=== PATIENT | female | born 1980 | race Caucasian/White ===

== ENCOUNTER → 2018-06-13 | Outpatient (CLI) | payer OTHER ==
--- NOTE | 2018-06-13 10:09 | KCIC ---
Bilateral diagnostic digital mammograms: Reason for examination: Lump in the upper outer quadrant of the left breast felt by the nurse practitioner. Baseline exam. Interpretation was made with the benefit of CAD. The skin and nipples show no abnormalities. No abnormal axillary lymph nodes are seen. The breast parenchyma is heterogeneously dense. (Breast density: Category C.) There circumscribed nodules in the upper outer quadrant of the left breast posteriorly with no associated calcifications. There is also a nodular density at approximately the 10:00 B position of the right breast. No other nodules are suspicious calcifications are seen. Impression: Circumscribed nodules in the upper outer quadrant of the left breast posteriorly. Nodular density at the 10:00 B position of the right breast. Ultrasound to follow. Your patient's mammogram demonstrates that she has dense breast tissue (breast density category C or D), which could hide abnormalities, and if she has other risk factors for breast cancer that have been identified, she might benefit from supplemental screening tests that may be suggested by you as her ordering physician. Dense breast tissue, in and of itself, is a relatively common condition. Therefore, this information is not provided to cause undue concern, but rather to raise your awareness and to promote discussion with your patient regarding the presence of other risk factors, in addition to dense breast tissue. Your patient's mammography results will be sent to her. BI-RAD Category 0: Incomplete. Needs additional imaging evaluation. Bilateral breast ultrasound: Ultrasound examination was performed in the areas of mammographic concern and the axilla bilaterally. In the right breast at the 10:00 position 4.5 cm from the nipple, there is a hypoechoic nodule measuring 1.2 x 1 cm in greatest dimension. This appears solid and the margins are not well-defined on all borders. Further evaluation with ultrasound biopsy is recommended. No other focal nodules are seen. No abnormal appearing lymph nodes are seen in the right axilla. In the left breast, there are hyperechoic circumscribed lesions present in the upper outer at the 2:00 position 9 cm from the nipple and at the 2:00 position 8 cm from the nipple. These have the appearance of simple and complicated cysts. No suspicious-appearing lesions are seen. No abnormal appearing lymph nodes are seen in the axilla. IMPRESSION: Solid-appearing nodule in the right breast at the 10:00 position 4.5 cm from the nipple. Recommend ultrasound-guided biopsy. Hypoechoic circumscribed lesions consistent with simple and complicated cysts at the 2:00 position of the left breast. Recommend 6 month follow-up with ultrasound. BI-RADS Category 4: Suspicious. These findings have been discussed with the patient and the patient's nurse practitioner, Deepti Lombardo was notified about these findings at 9:55 AM on 06/13/2018. "Our facility is accredited by the [employer] Mammography Program." This patient's information has been entered into a reminder system for the patient to be notified with the results of her examination and a target date for the next mammogram. Electronically signed by: Bonny Lutz MD (06/13/2018 10:06 AM) [id number]
== END | disposition home or self-care (01) ==
LOC: KCIC MAMMO 08:30
PROVIDERS: ATTEND Nurse Practitioner Family
DX: N63.11 Unspecified lump in the right breast, upper outer quadrant (principal); N64.89 Other specified disorders of breast
CPT/HCPCS: 76641; 77066

== ENCOUNTER → 2019-09-27 | Outpatient (CLI) | payer OTHER ==
--- NOTE | 2019-09-27 07:59 | RAD ---
Ultrasound the abdomen limited. HISTORY: R 10.11, right upper quadrant abdominal pain Ultrasound was used to evaluate the right upper quadrant of the abdomen. Mid body the pancreas was normal, portions of the head and tail of pancreas were obscured. Vena cava at the liver was unremarkable. There are heterogeneous hypoechoic lesions within the liver which could be masses. CT or MRI of the liver would be recommended for further evaluation. Gallbladder was normal without gallstones or gallbladder wall thickening. Right kidney was 10.3 cm in length without a mass or hydronephrosis. Common duct was normal measuring 3 mm. IMPRESSION: 1. Hepatic masses metastatic disease would be possible CT or MRI would be of benefit. 2. No gallstones noted. Electronically signed by: Matteo Cortes MD (09/27/2019 7:57 AM) [id number]
== END | disposition home or self-care (01) ==
LOC: US 06:37
PROVIDERS: ATTEND Nurse Practitioner Family
DX: R10.11 Right upper quadrant pain (principal)
CPT/HCPCS: 76705

== ENCOUNTER → 2019-10-08 | Outpatient (CLI) | payer OTHER ==
[~2019-10-08] MED LIST: CONTRAST GIVEN. MC PRN; IOHEXOL 300 MG/ML 100ML VIAL. IV ONE
--- NOTE | 2019-10-08 13:39 | RAD ---
EXAM: CT Abdomen with and without IV contrast INDICATION: Reason: HEPATIC LESION / Spl. Instructions: IV OMNI 300 75 MLS / History: TECHNIQUE: Multi-detector row CT images were acquired from the lung bases through the abdomen with and without the use of IV contrast. Sagittal and coronal images were acquired from the transaxial data. All CT scans performed at this facility utilize dose optimization techniques as appropriate to the exam, including the following: Automated exposure control and adjustment of the mA and/or KV according to patient size (this includes techniques or standardized protocols for targeted exams where dose is indication/reason for exam). IV CONTRAST: Administered ORAL CONTRAST: Not administered COMPARISON: Abdominal ultrasound 09/27/2019 FINDINGS: LOWER CHEST: Unremarkable LIVER: The 2 masses seen on ultrasound behave similarly on CT. One, in hepatic segment 5 (on series 3, image 45 of series 5 and image 44 of series 6) is a 3.6 cm isodense mass that shows enhancement similar to the portal vein on both the arterial and portal venous phases. It is essentially isointense to liver parenchyma on the precontrast images and contains a central hypodense region making it more conspicuous than the slightly more cephalad lesion in hepatic segment 8. The second mass in hepatic segment 8 (image 34 on series 3, 5 and 6) measures 3.8 cm and also contains a central area of hypodensity that is more subtle and only readily visible on the arterial phase images. It also enhances in similar fashion to the portal vein on both postcontrast series and is isointense to the liver precontrast. No pseudocapsule or washout. The liver is otherwise unremarkable. BILIARY SYSTEM: Gallbladder is unremarkable. Bile ducts are not dilated. PANCREAS: Unremarkable SPLEEN: Unremarkable ADRENALS: Unremarkable KIDNEYS & URETERS: Unremarkable GASTROINTESTINAL: The stomach, visualized small bowel, and colon are unremarkable. The appendix is not included in the [id number]. MESENTERY/PERITONEUM/RETROPERITONEUM: Unremarkable VASCULAR: Unremarkable LYMPH NODES: No adenopathy OSSEOUS & SOFT TISSUES: Unremarkable IMPRESSION: The 2 hepatic masses show imaging characteristics most typical of benign focal nodular hyperplasia with central scars. These do not resemble metastatic deposits. Ultrasound surveillance every 6 months for the next 3 years could be considered to document stability which can also flank and indication for surgical referral if there is evidence of progressive growth. Electronically signed by: Ortiz Yan MD (10/08/2019 1:36 PM) [id number]
== END ==
LOC: CT 07:18
PROVIDERS: ATTEND Nurse Practitioner Family
DX: R16.0 Hepatomegaly, not elsewhere classified (principal)
CPT/HCPCS: 74170; Q9967

== ENCOUNTER → 2020-05-23 | Outpatient (CLI) | payer OTHER ==
--- NOTE | 2020-05-23 12:44 | RAD ---
Ultrasound of the right upper quadrant abdomen 05/23/2020 CLINICAL HISTORY: History of hepatic lesions. TECHNIQUE: Real-time ultrasound examination of the right upper quadrant abdomen was performed. Multip le images were obtained. FINDINGS: Comparison is made to patient's CT scan abdomen dated 10/08/2019. Additional comparison is m dustin to patient's previous ultrasound abdomen dated 09/27/2019. The gallbladder is well-distended. No gallstones are visualized. The gallbladder wall thickness is wi thin normal limits. No pericholecystic fluid is seen. The common bile duct measures 3 mm in diameter which is within normal limits. The liver is mildly enlarged measuring 17 cm in length. Within the right lobe of the liver two hypoec hoic mass lesions are seen which measure 3.8 and 4.0 cm in size. These are unchanged from the previou s examination. No new abnormality of the liver is seen. The visualized portions of the pancreas and right kidney are within normal limits. No free fluid is s een. IMPRESSION: Stable sonographic appearance of the lesions involving the right lobe of the liver as dis cussed above. No new lesion is seen. Electronically signed by: Jeferson Pagan MD (05/23/2020 12:42 PM) [id number]
== END ==
LOC: US 08:46
PROVIDERS: ATTEND Nurse Practitioner Family
DX: K76.0 Fatty (change of) liver, not elsewhere classified (principal); K76.89 Other specified diseases of liver; K82.8 Other specified diseases of gallbladder
CPT/HCPCS: 76705

== ENCOUNTER → 2021-01-06 | Outpatient (CLI) | payer OTHER ==
--- NOTE | 2021-01-06 11:04 | RAD ---
EXAM: RIGHT UPPER QUADRANT ULTRASOUND. HISTORY: Liver lesions. COMPARISON: 05/23/2020, 10/08/2019. FINDINGS: Sonographic evaluation of the right upper quadrant was performed. An isoechoic mass within the right hepatic lobe is stable at 3.8 x 3.5 x 3.4 cm. A second mass more a nteriorly measures 3.4 x 3.3 x 2.9 cm. This is stable to decreased. Hepatic parenchymal echotexture i s mildly increased suggesting steatosis. The gallbladder is unremarkable without evidence of stones, wall thickening or pericholecystic fluid. There is no sonographic Quesada sign. The common duct measures 3 mm. The visualized portions of the head, body and tail of the pancreas reveal no abnormality. The right kidney measures 11.0 cm. Cortical thickness and echogenicity are preserved. There is no hyd ronephrosis. The visualized portions of the abdominal aorta and inferior vena cava are grossly patent and normal i n caliber. IMPRESSION: 1. 2 hepatic masses consistent with benign focal nodular hyperplasia are stable to decreased. Correla te for oral contraceptive medications. Sometimes these lesions can regress on discontinuation. 2. Mild diffuse hepatic steatosis. Electronically signed by: Denise Padilla MD (01/06/2021 11:01 AM) [id number]
== END ==
LOC: US 08:09
PROVIDERS: ATTEND Nurse Practitioner Family
DX: R16.0 Hepatomegaly, not elsewhere classified (principal); K76.0 Fatty (change of) liver, not elsewhere classified
CPT/HCPCS: 76705